=== PATIENT | male | born 1975 | race Caucasian/White ===

== ENCOUNTER 2021-10-20 23:01 | Emergency (ER) | payer SELFPAY ==
[2021-10-21] MEDS ORDERED: Ciprofloxacin 500 MG Tab PO ONE (00:04)
[2021-10-21] MEDS ORDERED: Diphtheria,Pertussis(Acell),Tetanus Vaccine 0.5 ML Syringe IM ONE (00:05)
== END 2021-10-21 00:36 | disposition home or self-care (01) ==
LOC: MW.ED 23:01
DX: S91.332A Puncture wound without foreign body, left foot, initial encounter (principal); Z23 Encounter for immunization; W45.0XXA Nail entering through skin, initial encounter
CPT/HCPCS: 73620; 90471; 90715; 99283; A9270

== ENCOUNTER 2022-07-28 18:02 | Emergency (ER) | payer SELFPAY ==
[2022-07-28] MEDS ORDERED: Famotidine 20 MG/2 ML SDV IVPUSH ONE (18:07)
[2022-07-28] MEDS ORDERED: diphenhydrAMINE 50 MG/ML SDV IVPUSH ONE (18:07)
[2022-07-28] MEDS ORDERED: methylPREDNISolone Sodium Succinate 125 MG/2 ML SDV IVPUSH ONE (18:07)
[2022-07-28] MEDS ORDERED: Sodium Chloride 0.9% 1,000 ML IV ONE (18:07)
[2022-07-28] MEDS ORDERED: EPINEPHrine 1 MG/1 ML Amp IM ONE (18:12)
[2022-07-28] MEDS ORDERED: EPINEPHrine 1 MG/1 ML Amp ONE ×2 (18:12→18:16)
== END 2022-07-28 20:35 | disposition home or self-care (01) ==
LOC: MW.ED 18:02
DX: T78.2XXA Anaphylactic shock, unspecified, initial encounter (principal); Z79.899 Other long term (current) drug therapy
CPT/HCPCS: 96361; 96372; 96374; 96375; 99283; J0171; J1200; J2930; J3490; J7030; 99284

== ENCOUNTER 2022-09-01 03:14 | Emergency (ER) | payer SELFPAY ==
[2022-09-01] MEDS ORDERED: EPINEPHrine 1 MG/1 ML Amp ONE (03:19)
[2022-09-01] MEDS ORDERED: EPINEPHrine 1 MG/1 ML Amp IM ONE (03:20)
[2022-09-01] MEDS ORDERED: diphenhydrAMINE 50 MG/ML SDV IVPUSH ONE (03:21)
[2022-09-01] MEDS ORDERED: Famotidine 20 MG/2 ML SDV IVPUSH ONE (03:21)
[2022-09-01] MEDS ORDERED: methylPREDNISolone Sodium Succinate 125 MG/2 ML SDV IVPUSH ONE (03:21)
[2022-09-01] MEDS ORDERED: Sodium Chloride 0.9% 1,000 ML IV ONE (03:21)
== END 2022-09-01 06:54 | disposition home or self-care (01) ==
LOC: MW.ED 03:14
DX: T78.3XXA Angioneurotic edema, initial encounter (principal); Z91.018 Allergy to other foods; Z91.030 Bee allergy status
CPT/HCPCS: 96372; 96374; 96375; 99283; J0171; J1200; J2930; J3490; J7030; 99284